=== PATIENT | male | born 1985 | race African-American/Black ===

== ENCOUNTER → 2016-12-16 | Outpatient (CLI) | payer OTHER ==
--- NOTE | 2016-12-16 12:23 | KCIC ---
CHEST AP ONLY History: TB exposure. Comparison: None. Findings: Cardiomediastinal silhouette is within normal limits. No focal new airspace consolidation. No pneumothorax identified. No evidence of pleural effusion. Impression: No evidence of active disease in the chest. Electronically signed by: Juliocesar Lagos MD (12/16/2016 12:20 PM) [id number]
== END | disposition home or self-care (01) ==
LOC: KCIC 10:17
PROVIDERS: ATTEND Family Medicine
DX: Z20.1 Contact with and (suspected) exposure to tuberculosis (principal)
CPT/HCPCS: 71010